=== PATIENT | female | born 1990 | race Caucasian/White ===

== ENCOUNTER 2017-04-07 13:17 | Observation (INO) | payer MEDICAID ==
[~2017-04-07] VITALS: Ht 165.1 cm; Wt 118.4 kg
[2017-04-07] MEDS ORDERED: PNV1TABL76 PO (14:09)
== END 2017-04-07 16:00 | disposition home or self-care (01) ==
LOC: L&D 13:17
PROVIDERS: ADMIT Obstetrics & Gynecology; ATTEND Obstetrics & Gynecology
DX: O36.8130 Decreased fetal movements, third trimester, not applicable or unspecified (principal); Z3A.38 38 weeks gestation of pregnancy
CPT/HCPCS: 59025; 76815; 76818; G0378; 99281